=== PATIENT | male | born 1985 | race Caucasian/White ===

== ENCOUNTER 2025-01-28 21:48 | Emergency (ER) | payer BC, SELFPAY ==
[2025-01-28 21:49] VITALS: BMI 29.9
--- NOTE | 2025-01-28 21:51 | EKG_ITS ---
[facility] Test Date: 2025-01-28 Pat Name: JODIE LOTT Department: Room: - Gender: Male Unarmed Security Officer: : 1985 Requested By: ED Temporary Provider Order Number: [id number] Reading MD: ED Temporary Provider Measurements Intervals [place] Rate: 49 P: 53 NM: 120 QRS: 12 QRSD: 110 T: 5 QT: 406 QTc: 368 Interpretive Statements SINUS BRADYCARDIA INCOMPLETE RIGHT BUNDLE BRANCH BLOCK [90+ ms QRS DURATION, TERMINAL R IN V1/V2, 40+ ms S IN I/aVL/V4/V5/V6] SEPTAL MYOCARDIAL INFARCTION , PROBABLY OLD [40+ ms Q WAVE IN V1/V2] No previous ECG available for comparison /[id number]
--- NOTE | 2025-01-28 22:04 | XR_ITS ---
Examination: PA lateral chest 2 views TECHNIQUE: Upright PA and lateral chest 2 views Date and time: January 28, 2025, 10:50 PM INDICATIONS: Chest pain beginning 3 hours ago FINDINGS: Normal heart size. Lungs are clear. The osseous structures are intact IMPRESSION: No active disease
[2025-01-28 22:17] VITALS: BP 125/78; PULSE 45; RESP 16; TEMP 36.9; O2SAT 97
[2025-01-28 22:47] LABS: Basophils # (Auto) 0.0 Thou/mm3 (0.0-0.2); Basophils % (Auto) 0 % (0-2.5); Eosinophils # (Auto) 0.1 Thou/mm3 (0.0-0.5); Eosinophils % (Auto) 1 % (0-10); Hematocrit 37.3 % (41.0-53.0); Hemoglobin 12.6 g/dL (13.5-16.0); Immature Granulocytes Auto 0.01 Thou/mm3 (0.00-0.00); Lymphocytes # (Auto) 2.1 Thou/mm3 (1.0-4.8); Lymphocytes % (Auto) 32 % (10-50); Mean Corpuscular HGB Conc 33.8 g/dl (31.0-37.0); Mean Corpuscular Hemoglobin 30.1 pg (25.0-35.0); Mean Corpuscular Volume 89 fL (80-100); Monocytes # (Auto) 0.5 Thou/mm3 (0.0-0.8); Monocytes % (Auto) 8 % (0-12); Neutrophils # (Auto) 3.8 Thou/mm3 (1.8-7.7); Neutrophils % (Auto) 58 % (37-80); Nucleated Red Blood Cell # 0.00 Thou/mm3 (0.00-0.00); Nucleated Red Blood Cell % 0 /100 WBC (0); Platelet Count 207 Thou/mm3 (140-440); RDW Standard Deviation 42.7 fL (35.1-43.9); Red Blood Count 4.19 Miln/mm3 (4.50-5.90); White Blood Count 6.5 Thou/mm3 (3.8-10.6)
[2025-01-28 23:01] LABS: INR 1.0 (0.9-1.3); Partial Thromboplastin Time 28.7 Seconds (22.0-36.0); Prothrombin Time 11.0 Seconds (9.0-12.2)
[2025-01-28 23:05] LABS: B-Type Natriuretic Peptide 58 pg/mL (0-100)
[2025-01-28 23:06] LABS: Alanine Aminotransferase 17 U/L (10-49); Albumin, Serum 4.6 gm/dL (3.5-5.0); Albumin/Globulin Ratio 1.9 (1.2-2.2); Alkaline Phosphatase 49 U/L (46-116); Anion Gap 9 (7-16); Aspartate Amino Transferase 18 U/L (0-34); BUN/Creatinine Ratio 8 Ratio (12-20); Bilirubin,Total 0.4 mg/dL (0.3-1.2); Blood Urea Nitrogen 8 mg/dL (9-23); Calcium 9.3 mg/dL (8.3-10.6); Calcium (Corrected) 9.3 mg/dL (8.5-10.1); Carbon Dioxide 29.1 mMol/L (20.0-31.0); Chloride 105 mMol/L (98-107); Creatinine (Component) 1.0 mg/dL (0.6-1.3); Estimated Creatinine Clearance 115.8 mL/min (>60); Globulin 2.4 gm/dL (2.3-3.5); Glucose 88 mg/dL (74-106); LDH (Lactate Dehydrogenase) 138 U/L (120-246); Magnesium 2.0 mg/dL (1.6-2.6); Osmolality,Calculated 282 (275-295); Potassium 3.7 mMol/L (3.4-5.1); Sodium 143 mMol/L (136-145); Total Protein 7.0 gm/dL (5.7-8.2); Troponin I < 0.020 ng/mL (0.0-0.045); eGFR > 60 See Note
[2025-01-29 02:18] LABS: Troponin I < 0.020 ng/mL (0.0-0.045)
--- NOTE | 2025-01-29 02:37 | EDNOTE_ITS ---
ED Chest Pain RME/HPI General Chief Complaint: Chest Pain Stated Complaint: CHEST PAIN FOR 3 HOURS Time Seen by Provider: 01/29/25 02:27 Arrival date/time: 01/28/25 21:48 RME / HPI RME / HPI narrative: 39-year-old male presents to the ED with complaint of left anterior wall chest pain he describes as a tightness. It came on after work today while he was working out in the backyard. He denies any heavy lifting or pulling. 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 He states the pain radiates to his left posterior shoulder he describes the pain as an 8/10 at its worst and is currently a 2-3/10. The timing is every other day. There are no exacerbating or alleviating factors. He denies any pain with movement but states he does have some mild pain with deep breaths. He denies any shortness of breath, nausea, or diaphoresis. He denies any recent illness with fever, chills, cough, upper respiratory complaints. He denies any nausea, vomiting, diarrhea or abdominal pain. Related Data Allergies Allergy/AdvReac Type Severity Reaction Status Date / Time No Known Allergies Allergy Verified 01/28/25 21:49 Review of Systems Review of Systems Systems Reviewed: All systems reviewed, normal except as documented Past Medical History Social History SMOKING STATUS: Never smoker Past Medical History Comments PMH COMMENT: PMH of hypercholesterolemia for which he took medications for approximately 1 year. ED Exam Narrative Physical exam: A&O, afebrile and non-toxic appearing 39-year-old male, no acute distress. Lung are clear, RRR, positive tenderness to palpation of the left anterior chest as well as the left trapezius muscle extending up into the neck. No pain with AP or lateral chest compression. Abdomen is soft, nontender, and non-distended. No pedal edema noted. Moves all extremities well. Course Course Course Narrative: Initial vital signs blood pressure 125/78, pulse 45, respirations 16 and nonlabored, temperature 98.4, O2 sat 97% on room air. CBC reveals a normal white count, mildly low hemoglobin and hematocrit of 12.6/37.3. Platelets are normal at 207. Coags are normal. Initial troponin is normal at less than 0.020 and LDH is normal at 138. BNP is normal at 58. CMP reveals normal electrolytes, normal renal function and normal liver function. Magnesium is normal at 2.0. Initial EKG reveals: Sinus bradycardia at a rate of 49 with incomplete right bundle branch block. No STEMI noted. XR chest reveals: No active disease. Second troponin is also normal at less than 0.020. Second EKG reveals: Quality Measures none Orders Category Date Time Status EKG (ED ONLY) *Do not use* NOW Care 01/28/25 21:51 Completed EKG (ED ONLY) *Do not use* NOW Care 01/29/25 02:46 Completed EKG (ED Only) Stat Exams 01/28/25 21:51 Draft EKG (ED Only) Stat Exams 01/29/25 02:46 Ordered XR chest 2V Stat Exams 01/28/25 22:04 Completed B-Type Natriuretic Peptide Stat Lab 01/28/25 22:34 Completed CBC Stat Lab 01/28/25 22:34 Completed Comprehensive Metabolic Panel Stat Lab 01/28/25 22:34 Completed Drug Screen,Urine Stat Lab 01/28/25 22:04 Ordered LDH (Lactate Dehydrogenase) Stat Lab 01/28/25 22:34 Completed Magnesium Stat Lab 01/28/25 22:34 Completed Partial Thromboplastin Time Stat Lab 01/28/25 22:34 Completed Prothrombin Time with INR Stat Lab 01/28/25 22:34 Completed Troponin I Stat Lab 01/28/25 22:34 Completed Troponin I Stat Lab 01/29/25 01:54 Completed UA, C/S IF [Urinalysis, C/S if Indicated] Stat Lab 01/28/25 22:04 Ordered Vital Signs Vital signs: Vital Signs Temperature 98.4 F 01/28/25 22:17 Pulse Rate 45 L 01/28/25 22:17 Respiratory Rate 16 01/28/25 22:17 Blood Pressure 125/78 01/28/25 22:17 Pulse Oximetry (%) 97 01/28/25 22:17 Oxygen Delivery Method Room Air 01/28/25 22:17 Chest Pain Patient data External records reviewed:: None Clinical information provided by:: patient Social determinants that could affect healthcare access:: none Patient has the following chronic illnesses:: Hypercholesterolemia How is presenting disease/condition affected by chronic disease/condition?: uneffected by Evaluation data The following diagnostics were reviewed and interpreted by me:: lab results, radiology exam(s) and EKG tracing(s) Lab and/or radiology exams considered but not ordered:: N/A Interpretation Summary: As noted above Medications / Prescriptions Medications or Prescriptions considered but not ordered:: N/A Medication administrations:: N/A Consultations Consultation(s) initiated? (list below): Yes Diagnosis Most likely diagnosis given after review of the tests above:: Acute anterior chest wall pain Admission Indicated Admission indicated?: not indicated Admission Request Was there a request for admission?: No Disposition Plan Disposition Plan: Discharge Discharge Attestation Discharge Attestation: The patient and all family members were given an opportunity to ask questions and understood the discharge instructions. Discharge instructions specifically effects, indications for sooner follow up or return to the emergency department, and the expected course of current diagnosis. Patient condition: Stable Discharge Plan Plan Patient Disposition: HOME (Self Care) Discharge Disposition comment: Stable Prescriptions/Referrals Referrals: No Primary/Family,Physician [Primary Care Provider] - In 1 week Problem List Clinical Impression: Anterior chest wall pain Patient/Caregiver Discharge Instructions Education Materials: ED Chest Wall Pain, Costochondritis Additional Instructions: Follow-up with your primary care physician in 24 to 48 hours. Return to the ED for any new or worsening symptoms. Print Language: Georgian Stand Alone Forms: Laine Award Info., Patient Portal Info Letter TOREY/GISEL Supervising Physician TOREY/GISEL Supervising Physician: Dr. Lin
--- NOTE | 2025-01-29 02:46 | EKG_ITS ---
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
== END 2025-01-29 03:53 | disposition home or self-care (01) ==
PROVIDERS: Emergency Provider Emergency Medicine
DX: R07.89 Other chest pain (principal); R00.1 Bradycardia, unspecified; I45.10 Unspecified right bundle-branch block
CPT/HCPCS: 36415; 71046; 80053; 80307; 81001; 83615; 83735; 83880; 84484; 85025; 85610; 85730; 93005; 99283